=== PATIENT | female | born 1970 | race Caucasian/White ===

== ENCOUNTER → 2019-06-03 | Outpatient (CLI) | payer BC ==
[~2019-06-03] MED LIST: ASPI325 PO; CETI5; DIPH50 PO; DOXE10 PO; GARCINIA CAMBO1 EACH; GARCINIA CAMBO1 EACH PO; OLOP.1OPSO; SIME80CH PO; XARELTO20 MG PO; ZYRTEC10 M2 PO
[2019-06-05 14:07] LABS: HPV 16 Negative (Negative); HPV 18 Negative (Negative); HPV OTHER HR TYPES Negative (Negative)
== END | disposition home or self-care (01) ==
LOC: LAB SHORT 11:09 → LAB 11:09
PROVIDERS: Obstetrics & Gynecology
DX: Z01.419 Encounter for gynecological examination (general) (routine) without abnormal findings (principal)
CPT/HCPCS: 87624; G0123

== ENCOUNTER 2022-08-19 06:47 | Day surgery (SDC) | payer BC ==
[~2022-08-19] VITALS: Ht 170.2 cm; Wt 98.6 kg
[2022-08-19] MEDS ORDERED: LEVONOR-ETH ES1 EAC7 (07:10)
[2022-08-19] MEDS ORDERED: OLOPATADINE HCL5 ML (07:10)
--- NOTE | 2022-08-19 07:32 | NUR ---
08/19/22 0732 Mari Cuevas TWO ATTEMPTS AT IV. FIRST ATTEMPT IN LH BY CHARLIE TRUJILLO. SECOND ATTEMPT IN R AC SUCESSFUL.
[2022-08-19 09:42] VITALS: BP 146/80
== END 2022-08-19 09:39 | disposition home or self-care (01) ==
LOC: ORSCSDS 06:47
PROVIDERS: Internal Medicine Gastroenterology
PROC: 0DBL8ZX Excision of Transverse Colon, Via Natural or Artificial Opening Endoscopic, Diagnostic (ICD-10-PCS; principal; 2022-08-19 08:00)
PROC: 0DBH8ZX Excision of Cecum, Via Natural or Artificial Opening Endoscopic, Diagnostic (ICD-10-PCS; principal; 2022-08-19 08:00)
PROC: 0DBP8ZX Excision of Rectum, Via Natural or Artificial Opening Endoscopic, Diagnostic (ICD-10-PCS; principal; 2022-08-19 08:00)
PROC: 0DBN8ZX Excision of Sigmoid Colon, Via Natural or Artificial Opening Endoscopic, Diagnostic (ICD-10-PCS; principal; 2022-08-19 08:00)
DX: Z12.11 Encounter for screening for malignant neoplasm of colon (principal); Z80.0 Family history of malignant neoplasm of digestive organs; K62.1 Rectal polyp; D12.5 Benign neoplasm of sigmoid colon; D12.3 Benign neoplasm of transverse colon; K63.5 Polyp of colon; I48.91 Unspecified atrial fibrillation; Z79.82 Long term (current) use of aspirin; Z79.899 Other long term (current) drug therapy
CPT/HCPCS: 88305; J2704; J7120